=== PATIENT | female | born 1995 | race Two or more races ===

== ENCOUNTER 2021-03-12 09:11 | Outpatient (CLI) | payer SELFPAY | END 2021-03-12 23:59 | disposition home or self-care (01) | LOC: WOU 09:11 | PROVIDERS: ATTEND Specialist | DX: S41.102D Unspecified open wound of left upper arm, subsequent encounter (principal); X94 Assault by rifle, shotgun and larger firearm discharge | CPT/HCPCS: 99205; A6209; G0463 ==